=== PATIENT | male | born 1965 | race Hispanic/Latino ===

== ENCOUNTER 2016-11-03 19:00 | Emergency (ER) | payer SELFPAY ==
[~2016-11-03] VITALS: Ht 170.2 cm; Wt 84.0 kg
[~2016-11-03 19:00] MED LIST: NAPROSYN500 MG PO
[2016-11-03 20:40] LABS: URINE BILIRUBIN - DIPSTICK NEGATIVE (NEGATIVE); URINE BLOOD DIPSTICK NEGATIVE (NEGATIVE); URINE CLARITY CLEAR; URINE COLOR YELLOW; URINE GLUCOSE - DIPSTICK >=1000 mg/dL (NEGATIVE); URINE KETONE NEGATIVE (NEGATIVE); URINE LEUK ESTERASE NEGATIVE (NEGATIVE); URINE NITRITE - DIPSTICK NEGATIVE (Negative); URINE PROTEIN - DIPSTICK NEGATIVE (NEG-TRACE); URINE SPECIFIC GRAVITY <=1.005; URINE UROBILINOGEN - DIPSTICK 0.2 E.U./dL (0.2)
[2016-11-03 20:41] LABS: HEMATOCRIT 40.8 % (39.0-50.0); HEMOGLOBIN 14.5 g/dl (14.0-18.0); IMMATURE GRANULOCYTES 0.4 % (0.0-1.0); MEAN CORPUSCULAR HGB 30.2 pG CALC (26.0-32.0); MEAN CORPUSCULAR HGB CONC 35.5 g/L CALC (32.0-36.0); NEUT# 3.71 thou/uL (1.82-7.42); RED BLOOD COUNT 4.8 mill/uL (4.70-6.10)
[2016-11-03 20:52] LABS: ALBUMIN 4.2 g/dL (3.2-5.0); ALKALINE PHOSPHATASE 124 u/l (38-126); ANION GAP 16 (6-22 (CALC)); BILIRUBIN, TOTAL 0.8 mg/dL (0.0-1.4); BUN 14 mg/dL (9-20); BUN/CREATININE RATIO 21 (12-20 (CALC)); CALCIUM 9.2 mg/dL (8.4-10.2); CARBON DIOXIDE 26 mmol/l (22-30); CHLORIDE 96 mmol/l (95-108); CREATININE 0.7 mg/dL (0.7-1.3); GFR > 60 ML/MIN (>=60 (CALC)); GFR FOR AFR.AMER. > 60 ML/MIN (>=60 (CALC)); POTASSIUM 3.8 mmol/l (3.5-5.1); SGOT/AST 104 u/l (17-59); SGPT/ALT 152 u/l (21-72); SODIUM 134 mmol/l (137-146); TOTAL PROTEIN 6.9 g/dL (6.3-8.2)
[2016-11-03 20:55] LABS: GLUCOSE 517 mg/dL (75-110)
[2016-11-04 01:30] VITALS: BP 106/62
== END 2016-11-04 01:30 | disposition home or self-care (01) | DRG 639 ==
LOC: ED 19:00 → ED-I 23:34 → ED 11-04 01:30
PROVIDERS: Emergency Medicine
DX: E11.65 Type 2 diabetes mellitus with hyperglycemia (principal); Z91.14 Patient's other noncompliance with medication regimen

== ENCOUNTER 2016-11-28 09:53 | Emergency (ER) | payer SELFPAY ==
[~2016-11-28] VITALS: Ht 170.2 cm; Wt 75.0 kg
[2016-11-28] MEDS ORDERED: BACTRIM DS1 TAB PO (12:06)
[2016-11-28 12:10] VITALS: BP 123/74
== END 2016-11-28 12:17 | disposition home or self-care (01) | DRG 566 ==
LOC: ED 09:53
PROC: 0HCFXZZ Extirpation of Matter from Right Hand Skin, External Approach (ICD-10-PCS; principal; 2016-11-28)
DX: M79.5 Residual foreign body in soft tissue (principal)